=== PATIENT | female | born 1950 ===

== ENCOUNTER 2024-02-22 08:52 | Day surgery (SDC) | payer OTHER ==
[2024-02-16 12:12] LABS: INR < 0.93; PARTIAL THROMBOPLASTIN TIME 21.7 SECONDS (22.0-34.0); PROTHROMBIN TIME 9.8 SECONDS (9.0-11.5)
[2024-02-16 12:17] LABS: PH,URINE 5.5 (5.0-8.0); URINE APPEARANCE Clear; URINE BILIRRUBIN Negative (NEGATIVE); URINE BLOOD Negative; URINE COLOR Yellow; URINE GLUCOSE Negative (NEGATIVE); URINE LEUKOCYTE Trace; URINE NITRATE Negative; URINE PROTEIN Negative (NEGATIVE); URINE UROBILINOGEN 0.2 E.U./dl
[2024-02-16 12:20] LABS: ALBUMIN 4.1 gm/dL (3.4-5.0); BILIRUBIN TOTAL 0.49 mg/dL (0.3-1.2); CALCIUM 9.5 mg/dL (8.5-10.1); CREATININE SERUM 0.53 mg/dL (0.55-1.02); GFR 113.72; GLOBULINA 3.9 G/DL (2.4-3.5); POTASSIUM 3.76 mEq/L (3.5-5.1)
[2024-02-16 12:21] LABS: URINE BACTERIA 105.8 uL (0.0-1933); URINE EPITHELIAL CELLS 17.3 uL (0.0-38.8); URINE RBC 12.2 uL (0.0-20.8); URINE WBC 11.5 uL (0.0-23.2)
[2024-02-16 12:24] LABS: HEMATOCRIT 44.4 % (36.0-45.00); HEMOGLOBIN 14.8 g/dL (12.0-15.00); MEAN CELL VOLUME 81.1 fL (80.00-100.00); MEAN CORPUSCULAR HEMOGLOBIN 27.1 pg (27.00-32.0); MEAN CORPUSCULAR HGB CONC 33.4 g/dl (32.0-36.0); PLATELET COUNT 287 K/uL (150-450); RED BLOOD COUNT 5.48 M/uL (4.00-6.00); RED CELL DISTRIBUTION WIDTH 14.2 % (11.5-14.5)
[~2024-02-22 08:52] MED LIST: LISINOPRIL; METOPROLO; NORVASC
[2024-02-22] MEDS ORDERED: BUPIVACAINE HCL/MPF 0.5% 30ML VIAL ONE (10:48)
[2024-02-22] MEDS ORDERED: POVIDONE-IODINE 118 ML BOTT TOP ONE (10:48)
[2024-02-22] MEDS ORDERED: DIBUCAINE 30 GM TUBE ONE (10:48)
[2024-02-22] MEDS ORDERED: CEFTRIAXONE SODIUM 2,000 MG VIAL ONE (10:49)
[2024-02-22] MEDS ORDERED: LIDOCAINE HCL 1%/EPINEPHRINE 20ML VIAL IJ ONE (10:49)
[2024-02-22] MEDS ORDERED: METRONIDAZOLE/SODIUM CHLORIDE 500 MG/100 ML PIGGYBACK IV ONE (10:49)
[2024-02-22] MEDS ORDERED: ONDANSETRON HCL 2 MG/ML VIAL ONE (14:40)
== END 2024-02-22 16:10 | disposition home or self-care (01) ==
LOC: CIR.AMB 08:52
PROVIDERS: ATTEND Colon & Rectal Surgery
DX: D12.8 Benign neoplasm of rectum (principal); A63.0 Anogenital (venereal) warts; D12.9 Benign neoplasm of anus and anal canal; Z86.010 Personal history of colon polyps; Z91.041 Radiographic dye allergy status